=== PATIENT | female | born 1985 | race African-American/Black ===

== ENCOUNTER 2016-07-03 07:47 | Emergency (ER) | payer MEDICAID ==
[~2016-07-03] VITALS: Ht 160 cm; Wt 72.1 kg
[2016-07-03 08:24] LABS: Urine Bilirubin Negative (Negative); Urine Blood Negative /uL (Negative); Urine Color Yellow (Yellow); Urine Glucose Normal (Normal); Urine Ketone Negative (Negative); Urine Mucus FEW (None Seen); Urine Nitrite Negative (Negative); Urine RBC <1 /hpf (0 - 4); Urine Squamous Epithelial Cell FEW /hpf (<5)
[2016-07-03 08:28] LABS: Basophils # (auto) 0 uL; Basophils % (auto) 0.3 % (0.0-2.0); Eosinophils # (auto) 0.2 uL; Eosinophils % (auto) 3.7 % (0.0-7.0); Hematocrit 36.7 % (36.0-46.0); Hemoglobin 12.5 g/dL (12.2-16.2); Lymphocytes # (auto) 1.7 uL; Lymphocytes % (auto) 28.9 % (10.0-50.0); Mean Corpuscular Hemoglobin 32.5 pg (28.0-32.0); Mean Corpuscular Volume 95.6 fL (80.0-100.0); Mean Platelet Volume 7.1 fL (7.4-10.4); Monocytes # (auto) 0.4 uL; Monocytes % (auto) 7.1 % (0.0-12.0); Neutrophils # (auto) 3.6 uL; Platelet Count (auto) 272 10^3/uL (140-450); Red Cell Distribution Width 13.3 % (11.6-16.0); White Blood Cell 5.9 10^3/uL (4.4-10.8)
[2016-07-03 10:15] VITALS: BP 121/63
== END 2016-07-03 10:19 | disposition home or self-care (01) ==
LOC: ER 07:47
DX: O23.41 Unspecified infection of urinary tract in pregnancy, first trimester (principal); Z34.91 Encounter for supervision of normal pregnancy, unspecified, first trimester; Z3A.01 Less than 8 weeks gestation of pregnancy
CPT/HCPCS: 36415; 76801; 76817; 81001; 84702; 85025

== ENCOUNTER 2016-08-01 06:56 | Emergency (ER) | payer MEDICAID ==
[~2016-08-01] VITALS: Ht 162.6 cm; Wt 70.5 kg
[2016-08-01 08:25] LABS: Urine RBC None Seen /hpf (0 - 4)
[2016-08-01 08:46] LABS: Urine Bilirubin Negative (Negative); Urine Blood Negative /uL (Negative); Urine Color Yellow (Yellow); Urine Glucose Normal (Normal); Urine Ketone Negative (Negative); Urine Nitrite Negative (Negative); Urine Squamous Epithelial Cell FEW /hpf (<5); Urine Urobilinogen Normal (Negative)
[2016-08-01 09:44] VITALS: BP 114/75
== END 2016-08-01 09:51 | disposition home or self-care (01) ==
LOC: ER 06:56
DX: O26.891 Other specified pregnancy related conditions, first trimester (principal); Z3A.10 10 weeks gestation of pregnancy
CPT/HCPCS: 76801; 81001

== ENCOUNTER 2016-09-03 08:58 | Emergency (ER) | payer MEDICAID ==
[~2016-09-03] VITALS: Ht 160 cm; Wt 70.1 kg
[2016-09-03 11:45] LABS: Urine Bilirubin Negative (Negative); Urine Blood Negative /uL (Negative); Urine Color Yellow (Yellow); Urine Glucose Normal (Normal); Urine Mucus FEW (None Seen); Urine Nitrite Negative (Negative); Urine RBC 1 /hpf (0 - 4); Urine Squamous Epithelial Cell FEW /hpf (<5); Urine pH 6.5 (5.0-8.0)
[2016-09-03 11:46] LABS: Urine Ketone 3+ (Negative)
[2016-09-03 12:33] VITALS: BP 108/70
== END 2016-09-03 12:23 | disposition home or self-care (01) ==
LOC: ER 09:03
DX: O26.892 Other specified pregnancy related conditions, second trimester (principal); R51 Headache; Z34.90 Encounter for supervision of normal pregnancy, unspecified, unspecified trimester; Z3A.15 15 weeks gestation of pregnancy
CPT/HCPCS: 36415; 76805; 81001; 84702